=== PATIENT | female | born 1930 | race Asian ===

== ENCOUNTER 2016-09-08 14:31 | Outpatient (CLI) | payer OTHER ==
[2016-09-08] MEDS ORDERED: LUBI24CA PO (15:04)
[2016-09-08] MEDS ORDERED: ALBUTEROL0.083 % IN (15:04)
[2016-09-08] MEDS ORDERED: GABA100C2 PO (15:05)
[2016-09-08] MEDS ORDERED: ASPIRIN ADULT L81 MG OR (15:05)
[2016-09-08] MEDS ORDERED: FURO20TA67 PO (15:06)
[2016-09-08] MEDS ORDERED: LEVAQUIN250 MG OR (15:06)
[2016-09-08] MEDS ORDERED: LACTTAB PO (15:06)
[2016-09-08] MEDS ORDERED: MIRALAX3350 N1 OR (15:08)
[2016-09-08] MEDS ORDERED: MUCINEX600 MG OR (15:09)
[2016-09-08] MEDS ORDERED: OMEPRAZOLE20 M1 OR (15:10)
[2016-09-08] MEDS ORDERED: NIFE30TA PO (15:10)
[2016-09-08] MEDS ORDERED: REMERON SOLTAB15 MG OR (15:11)
[2016-09-08] MEDS ORDERED: SIMV10TA PO (15:13)
[2016-09-08] MEDS ORDERED: LEVO0.0723 PO (15:13)
[2016-09-08] MEDS ORDERED: CALCITRIOL0.25 MCG OR (15:13)
[2016-09-08] MEDS ORDERED: TRAM50TA PO (15:14)
[2016-09-08] MEDS ORDERED: DIAZ5TAB20 PO (15:15)
[2016-09-08] MEDS ORDERED: TYLENOL325 MG OR (15:15)
[2016-09-08] MEDS ORDERED: ONDA2INJ2 IV (15:16)
[2016-09-08] MEDS ORDERED: CETI10TA PO (15:16)
== END 2016-09-08 14:32 | disposition short-term general hospital (02) ==
LOC: AMB 14:31
DX: I49.8 Other specified cardiac arrhythmias (principal)
CPT/HCPCS: A0425; A0429

== ENCOUNTER 2016-09-08 14:45 | Emergency (ER) | payer OTHER ==
[~2016-09-08] VITALS: Ht 167.6 cm; Wt 670.0 kg
[2016-09-08 14:45] VITALS: TEMP 98.3
[2016-09-08] MEDS ORDERED: LUBI24CA PO (15:04)
[2016-09-08] MEDS ORDERED: ALBUTEROL0.083 % IN (15:04)
[2016-09-08] MEDS ORDERED: GABA100C2 PO (15:05)
[2016-09-08] MEDS ORDERED: ASPIRIN ADULT L81 MG OR (15:05)
[2016-09-08] MEDS ORDERED: LACTTAB PO (15:06)
[2016-09-08] MEDS ORDERED: LEVAQUIN250 MG OR (15:06)
[2016-09-08] MEDS ORDERED: FURO20TA67 PO (15:06)
[2016-09-08] MEDS ORDERED: MIRALAX3350 N1 OR (15:08)
[2016-09-08] MEDS ORDERED: MUCINEX600 MG OR (15:09)
[2016-09-08] MEDS ORDERED: NIFE30TA PO (15:10)
[2016-09-08] MEDS ORDERED: OMEPRAZOLE20 M1 OR (15:10)
[2016-09-08] MEDS ORDERED: REMERON SOLTAB15 MG OR (15:11)
[2016-09-08] MEDS ORDERED: SIMV10TA PO (15:13)
[2016-09-08] MEDS ORDERED: LEVO0.0723 PO (15:13)
[2016-09-08] MEDS ORDERED: CALCITRIOL0.25 MCG OR (15:13)
[2016-09-08] MEDS ORDERED: TRAM50TA PO (15:14)
[2016-09-08] MEDS ORDERED: TYLENOL325 MG OR (15:15)
[2016-09-08] MEDS ORDERED: DIAZ5TAB20 PO (15:15)
[2016-09-08] MEDS ORDERED: ONDA2INJ2 IV (15:16)
[2016-09-08] MEDS ORDERED: CETI10TA PO (15:16)
[2016-09-08 15:41] LABS: PLATELET COUNT 320 K/uL (152-353)
[2016-09-08 16:08] LABS: POTASSIUM 4.3 mmol/L (3.6-5.2)
[2016-09-08 17:35] VITALS: BP 135/85
== END 2016-09-08 18:20 | disposition home or self-care (01) ==
LOC: ED 14:45
PROVIDERS: Specialist
DX: I47.1 Supraventricular tachycardia (principal); N18.6 End stage renal disease
CPT/HCPCS: 36591; 80048; 82550; 82553; 83735; 84443; 84484; 85027; 93005; 99283

== ENCOUNTER 2016-09-08 18:29 | Outpatient (CLI) | payer OTHER ==
[~2016-09-08 18:29] MED LIST: ALBUTEROL0.083 % IN; ASPIRIN ADULT L81 MG OR; CALCITRIOL0.25 MCG OR; CETI10TA PO; DIAZ5TAB20 PO; FURO20TA67 PO; GABA100C2 PO; LACTTAB PO; LEVAQUIN250 MG OR; LEVO0.0723 PO; LUBI24CA PO; MIRALAX3350 N1 OR; MUCINEX600 MG OR; NIFE30TA PO; OMEPRAZOLE20 M1 OR; ONDA2INJ2 IV; REMERON SOLTAB15 MG OR; SIMV10TA PO; TRAM50TA PO; TYLENOL325 MG OR
== END 2016-09-08 18:49 | disposition short-term general hospital (02) ==
LOC: AMB 18:29
DX: I47.1 Supraventricular tachycardia (principal); N18.6 End stage renal disease
CPT/HCPCS: A0425; A0428

== ENCOUNTER 2016-11-08 14:09 | Emergency (ER) | payer OTHER ==
[~2016-11-08] VITALS: Ht 167.6 cm; Wt 73.9 kg
[2016-11-08 14:06] VITALS: TEMP 98
[2016-11-08] MEDS ORDERED: RENVELA800 MG PO (14:18)
[2016-11-08 15:31] LABS: PLATELET COUNT 212 K/uL (152-353)
[2016-11-08 15:33] LABS: POTASSIUM 3.5 mmol/L (3.6-5.2)
[2016-11-08 19:30] VITALS: BP 175/86
== END 2016-11-08 19:31 | disposition home or self-care (01) ==
LOC: ED 14:09
PROVIDERS: Specialist
DX: K59.09 Other constipation (principal); N18.5 Chronic kidney disease, stage 5; Z99.2 Dependence on renal dialysis
CPT/HCPCS: 36415; 80053; 82150; 83605; 83690; 83735; 84100; 84484; 85027; 99283

== ENCOUNTER 2016-11-22 13:03 | Outpatient (CLI) | payer OTHER ==
[~2016-11-22 13:03] MED LIST changes: +RENVELA800 MG PO
== END 2016-11-22 13:04 | disposition short-term general hospital (02) ==
LOC: AMB 13:03
DX: R10.84 Generalized abdominal pain (principal)
CPT/HCPCS: A0425; A0429

== ENCOUNTER 2016-11-22 13:04 | Emergency (ER) | payer OTHER ==
[~2016-11-22] VITALS: Ht 165.1 cm; Wt 73.5 kg
[2016-11-22 13:10] VITALS: BP 148/72; TEMP 97.7
[2016-11-22 13:51] LABS: PLATELET COUNT 202 K/uL (152-353)
[2016-11-22 14:02] LABS: POTASSIUM 3.7 mmol/L (3.6-5.2)
== END 2016-11-22 16:00 | disposition home or self-care (01) ==
LOC: ED 13:04
DX: R10.13 Epigastric pain (principal); K21.9 Gastro-esophageal reflux disease without esophagitis
CPT/HCPCS: 36415; 80053; 82150; 83690; 85027; 86318; 96374; 99284; J2405